=== PATIENT | female | born 1945 | race Two or more races ===

== ENCOUNTER 2023-04-30 08:40 | Outpatient (CLI) | payer OTHER | END 2023-04-30 08:47 | disposition home or self-care (01) | LOC: MAMO-SONO 08:40 | PROVIDERS: ATTEND Internal Medicine Hematology & Oncology | DX: C50.411 Malignant neoplasm of upper-outer quadrant of right female breast (principal); C79.51 Secondary malignant neoplasm of bone ==

== ENCOUNTER → 2024-02-26 | Emergency (ER) | payer OTHER | END | disposition left against medical advice (07) | LOC: ER 04:00 | DX: Z53.21 Procedure and treatment not carried out due to patient leaving prior to being seen by health care provider (principal) ==